=== PATIENT | female | born 1965 | race African-American/Black ===

== ENCOUNTER 2017-08-08 14:53 | Emergency (ER) | payer OTHER ==
[~2017-08-08] VITALS: Ht 170.2 cm; Wt 100.0 kg
[~2017-08-08 14:53] MED LIST: AMLO-511 PO; ASPI-1182 PO; HYDR12.530 PO; METF500T4 PO; POT1TABL2 PO; SIMV-260 PO
[2017-08-08 15:07] LABS: GLUCOSE,POINT OF CARE 104 MG/DL (70-110)
[2017-08-08] MEDS ORDERED: IBUPROFEN 800 MG TABLET PO ONE (15:30)
[2017-08-08] MEDS ORDERED: [UNRECOGNIZED DRUG - CODE] PO (15:46)
[2017-08-08] MEDS ORDERED: GABA-531 PO (15:46)
[2017-08-08] MEDS ORDERED: HYDR-309 PO (15:46)
[2017-08-08] MEDS ORDERED: LISI-618 PO (15:46)
[2017-08-08] MEDS ORDERED: LISINOPRIL 10 MG TABLET PO ONE (16:00)
[2017-08-08 17:24] VITALS: BP 153/85
== END 2017-08-08 17:43 | disposition home or self-care (01) ==
LOC: EMS 14:54
DX: S62.613A Displaced fracture of proximal phalanx of left middle finger, initial encounter for closed fracture (principal); S62.615A Displaced fracture of proximal phalanx of left ring finger, initial encounter for closed fracture; I10 Essential (primary) hypertension; E11.9 Type 2 diabetes mellitus without complications; E78.00 Pure hypercholesterolemia, unspecified; F17.210 Nicotine dependence, cigarettes, uncomplicated; W50.0XXA Accidental hit or strike by another person, initial encounter; Y93.89 Activity, other specified; Y92.89 Other specified places as the place of occurrence of the external cause; Y99.8 Other external cause status
CPT/HCPCS: 82962; 99284

== ENCOUNTER 2019-01-21 12:34 | Inpatient (IN) | payer SELFPAY ==
[~2019-01-21] VITALS: Ht 172.7 cm; Wt 94.8 kg
[~2019-01-21 12:34] MED LIST changes: -AMLO-511 PO; -ASPI-1182 PO; +GABA-531 PO; +HYDR-309 PO; -HYDR12.530 PO; +LISI-618 PO; +METF-960 PO; -METF500T4 PO; -POT1TABL2 PO; -SIMV-260 PO; +[UNRECOGNIZED DRUG - CODE] PO
[2019-01-21] MEDS ORDERED: SIMV-260 PO (12:40)
[2019-01-21] MEDS ORDERED: AMLO-511 PO (12:40)
[2019-01-21] MEDS ORDERED: METF-960 PO (12:40)
[2019-01-21 12:54] LABS: GLUCOSE,POINT OF CARE 142 MG/DL (70-110)
[2019-01-21 14:25] LABS: BASOPHILS % (AUTO) 1.4 % (0.0-2.0); EOSINOPHILS % (AUTO) 3.7 % (1.0-6.0); HEMATOCRIT 38.2 % (36-46); HEMOGLOBIN 12.5 g/dL (12.0-16.0); LYMPHOCYTES % (AUTO) 45.7 % (22.0-44.0); MEAN CORPUSCULAR HEMOGLOBIN 25.7 pg (26.0-34.0); MEAN CORPUSCULAR HGB CONC 32.7 G/dL (31.0-37.0); MEAN CORPUSCULAR VOLUME 79 fL (80-100); MONOCYTES # (AUTO) 0.7 K/uL (0.1-1.0); MONOCYTES % (AUTO) 10.7 % (2.0-9.0); NEUTROPHILS # (AUTO) 2.6 K/uL (1.8-7.7); NEUTROPHILS % (AUTO) 38.5 % (40.0-70.0); PLATELET COUNT (AUTO) 329 K/uL (150-450); RED BLOOD CELL COUNT(AUTO) 4.87 MIL/uL (4.00-5.20); RED CELL DISTRIBUTION WIDTH 14.5 % (11.5-14.5)
[2019-01-21 14:28] LABS: APPEARANCE,URINE CLOUDY (CLEAR); BILIRUBIN,URINE NEGATIVE (NEGATIVE); GLUCOSE, URINE (UA) NEGATIVE (NEGATIVE); KETONES,URINE NEGATIVE (NEGATIVE); LEUKOCYTE ESTERASE ,URINE NEGATIVE (NEGATIVE); NITRATE,URINE NEGATIVE (NEGATIVE); OCCULT BLOOD,URINE NEGATIVE (NEGATIVE); PROTEIN,URINE NEGATIVE (NEGATIVE)
[2019-01-21 14:48] LABS: ANION GAP 8 mmol/L (8-16); CALCIUM, TOTAL 9.2 mg/dL (8.8-10.5); CARBON DIOXIDE 29 mmol/L (22-29); CHLORIDE 103 mmol/L (98-107); CREATININE 0.79 mg/dL (0.60-1.30); GLOMERULAR FILTR. RATE CALC > 60 mL/min (>60); GLUCOSE,RANDOM 94 mg/dL (70-110); POTASSIUM 3.9 mmol/L (3.5-5.1); SODIUM SERUM 140 mmol/L (136-145); UREA NITROGEN, BLOOD 8 mg/dL (7-18)
[2019-01-21 14:52] LABS: BACTERIA,URINE None Seen /HPF (None Seen); RBC,URINE None Seen /HPF (0-2); SQUAMOUS EPITHELIAL CELL,UR None Seen /LPF (None Seen); WBC,URINE None Seen /HPF (0-5)
[2019-01-21 14:52] LABS: ALANINE AMINOTRANSFERASE 24 U/L (12-78); ALBUMIN 3.1 g/dL (3.4-5.0); ALKALINE PHOSPHATASE 91 U/L (46-116); ASPARTATE AMINOTRANSFERASE 18 U/L (15-37); BILIRUBIN,TOTAL 0.3 mg/dL (0.1-1.0); LIPASE 347 U/L (73-393); TOTAL PROTEIN, SERUM 7.7 g/dL (6.4-8.2)
[2019-01-21] MEDS ORDERED: ASPIRIN 81 MG CHEWABLE TABLET PO ONE (16:45)
[2019-01-21] MEDS ORDERED: PYRI50 PO (16:49)
[2019-01-21] MEDS ORDERED: ACETAMINOPHEN 325 MG TABLET PO PRN (19:15)
[2019-01-21] MEDS ORDERED: 0.9% SODIUM CHLORIDE 10 ML SYRINGE IVP PRN (19:15)
[2019-01-21] MEDS ORDERED: ONDANSETRON HCL 4 MG/2 ML VIAL IVP PRN ×2 (19:15→20:00)
[2019-01-21] MEDS ORDERED: MAGNESIUM OXIDE 400 MG TABLET PO PRN (20:00)
[2019-01-21] MEDS ORDERED: POTASSIUM CHL 10 MEQ/WATER 50 ML IV PRN (20:00)
[2019-01-21] MEDS ORDERED: IPRATROPIUM BROMIDE 0.5 MG/2.5 ML NEB SOLUTION NEB PRN (20:00)
[2019-01-21] MEDS ORDERED: BISACODYL 10 MG RECTAL RECTAL SUPPOSITORY PR PRN (20:00)
[2019-01-21] MEDS ORDERED: OxyCODONE HCL/ACETAMINOPHEN 5-325 MG TABLET PO PRN (20:00)
[2019-01-21] MEDS ORDERED: MAGNESIUM HYDROXIDE SUSPENSION 30 ML UDCUP PO PRN (20:00)
[2019-01-21] MEDS ORDERED: POTASSIUM CHLORIDE 20 MEQ ER TABLET PO PRN (20:00)
[2019-01-21] MEDS ORDERED: ZOLPIDEM TARTRATE 5 MG TABLET PO PRN (20:00)
[2019-01-21] MEDS ORDERED: MAGNESIUM SULFATE 2 GM/WATER 50 ML IV PRN (20:00)
[2019-01-21] MEDS ORDERED: MORPHINE SULFATE 2 MG/ML SYRINGE IVP PRN (20:00)
[2019-01-21] MEDS ORDERED: MAGNESIUM SULFATE 4 GM/WATER 100 ML IV PRN (20:00)
[2019-01-21] MEDS ORDERED: ALBUTEROL SULFATE 2.5 MG/0.5 ML NEB SOLUTION NEB PRN (20:00)
[2019-01-21 20:54] LABS: GLUCOSE,POINT OF CARE 250 MG/DL (70-110)
[2019-01-21] MEDS: SIMVASTATIN 20 MG TABLET PO SCH (21:21)
[2019-01-21] MEDS ORDERED: ASPI-1182 PO (21:24)
[2019-01-21 21:25] VITALS: BP 150/80
[2019-01-22] VITALS (7 sets, daily range): BP systolic 130–160; BP diastolic 67–102
[2019-01-22] MEDS ORDERED: DEXTROSE 50%-WATER 25 GM/50 ML SYRINGE IVP PRN (05:30)
[2019-01-22 06:18] LABS: INR 0.9 (0.9-1.1); PROTHROMBIN TIME 9.8 SEC (9.4-11.6)
[2019-01-22 06:20] LABS: EOSINOPHILS % (AUTO) 5.1 % (1.0-6.0); HEMATOCRIT 35.6 % (36-46); HEMOGLOBIN 11.6 g/dL (12.0-16.0); LYMPHOCYTES # (AUTO) 2.2 K/uL (1.0-4.8); LYMPHOCYTES % (AUTO) 45.1 % (22.0-44.0); MEAN CORPUSCULAR HGB CONC 32.5 G/dL (31.0-37.0); MEAN CORPUSCULAR VOLUME 80 fL (80-100); MONOCYTES # (AUTO) 0.7 K/uL (0.1-1.0); MONOCYTES % (AUTO) 13.9 % (2.0-9.0); NEUTROPHILS # (AUTO) 1.7 K/uL (1.8-7.7); NEUTROPHILS % (AUTO) 34.9 % (40.0-70.0); PLATELET COUNT (AUTO) 302 K/uL (150-450); RED BLOOD CELL COUNT(AUTO) 4.46 MIL/uL (4.00-5.20); RED CELL DISTRIBUTION WIDTH 14.4 % (11.5-14.5)
[2019-01-22 06:53] LABS: ALANINE AMINOTRANSFERASE 21 U/L (12-78); ALBUMIN 2.6 g/dL (3.4-5.0); ALKALINE PHOSPHATASE 84 U/L (46-116); ANION GAP 5 mmol/L (8-16); ASPARTATE AMINOTRANSFERASE 15 U/L (15-37); BILIRUBIN,TOTAL 0.2 mg/dL (0.1-1.0); CALCIUM, TOTAL 8.7 mg/dL (8.8-10.5); CARBON DIOXIDE 29 mmol/L (22-29); CHLORIDE 102 mmol/L (98-107); GLOMERULAR FILTR. RATE CALC > 60 mL/min (>60); GLUCOSE,RANDOM 161 mg/dL (70-110); PHOSPHORUS 4.3 mg/dL (2.5-4.9); POTASSIUM 3.6 mmol/L (3.5-5.1); SODIUM SERUM 136 mmol/L (136-145); TOTAL PROTEIN, SERUM 7.1 g/dL (6.4-8.2); UREA NITROGEN, BLOOD 8 mg/dL (7-18)
[2019-01-22] MEDS: LISINOPRIL 20 MG TABLET PO SCH (08:51)
[2019-01-22] MEDS: MetFORMIN HCL 500 MG TABLET PO SCH ×2 (08:51→18:10)
[2019-01-22] MEDS: PYRIDOXINE HCL 50 MG TABLET PO SCH (08:51)
[2019-01-22] MEDS: FAMOTIDINE 20 MG TABLET PO SCH (08:51)
[2019-01-22] MEDS: GABAPENTIN 300 MG CAPSULE PO SCH ×3 (08:51→20:58)
[2019-01-22] MEDS: AmLODIPine BESYLATE 5 MG TABLET PO SCH (08:51)
[2019-01-22] MEDS: ASPIRIN 81 MG EC TABLET PO SCH (08:55)
[2019-01-22] MEDS: NICOTINE 21 MG/24 HOUR PATCH TD SCH (09:50)
[2019-01-22 11:48] LABS: GLUCOMETER DEV NAME(LOC) 5N.2; GLUCOSE,POINT OF CARE 144 MG/DL (70-110)
[2019-01-22 12:14] LABS: GLUCOMETER DEV NAME(LOC) 5S.1; GLUCOSE,POINT OF CARE 130 MG/DL (70-110)
[2019-01-22 12:15] LABS: CHOL/HDL RATIO 4.3 (3.9-5.7); THYROID STIMULATING HORMONE 0.82 uIU/mL (0.36-3.74)
[2019-01-22 12:17] LABS: HEMOGLOBIN A1C 6.5 % (4.5-6.2)
[2019-01-22 18:54] LABS: GLUCOMETER DEV NAME(LOC) 5S.2; GLUCOSE,POINT OF CARE 207 MG/DL (70-110)
[2019-01-22] MEDS: SIMVASTATIN 20 MG TABLET PO SCH (20:58)
[2019-01-22] MEDS: INSULIN LISPRO 100 UNITS/ML SQ PRN (21:08)
[2019-01-22 22:58] LABS: GLUCOMETER DEV NAME(LOC) 5S.2; GLUCOSE,POINT OF CARE 210 MG/DL (70-110)
[2019-01-23] VITALS (7 sets, daily range): BP systolic 137–181; BP diastolic 78–101
[2019-01-23] MEDS: ACETAMINOPHEN 325 MG TABLET PO PRN ×2 (05:51→11:45)
[2019-01-23] MEDS: INSULIN LISPRO 100 UNITS/ML SQ PRN ×3 (05:52→17:29)
[2019-01-23 08:09] LABS: GLUCOMETER DEV NAME(LOC) 5N.2; GLUCOSE,POINT OF CARE 155 MG/DL (70-110)
[2019-01-23] MEDS: MetFORMIN HCL 500 MG TABLET PO SCH ×2 (08:26→18:12)
[2019-01-23] MEDS: LISINOPRIL 20 MG TABLET PO SCH (08:26)
[2019-01-23] MEDS: PYRIDOXINE HCL 50 MG TABLET PO SCH (08:26)
[2019-01-23] MEDS: AmLODIPine BESYLATE 5 MG TABLET PO SCH (08:26)
[2019-01-23] MEDS: ASPIRIN 81 MG EC TABLET PO SCH (08:26)
[2019-01-23] MEDS: FAMOTIDINE 20 MG TABLET PO SCH (08:26)
[2019-01-23] MEDS: NICOTINE 21 MG/24 HOUR PATCH TD SCH (08:31)
[2019-01-23] MEDS ORDERED: AmLODIPine BESYLATE 5 MG TABLET PO ONE (11:30)
[2019-01-23 15:48] LABS: GLUCOMETER DEV NAME(LOC) 5S.2; GLUCOSE,POINT OF CARE 183 MG/DL (70-110)
[2019-01-23] MEDS: GABAPENTIN 300 MG CAPSULE PO SCH (22:06)
[2019-01-23] MEDS: SIMVASTATIN 20 MG TABLET PO SCH (22:06)
[2019-01-24 04:51] VITALS: BP 152/85
[2019-01-24] MEDS: ACETAMINOPHEN 325 MG TABLET PO PRN (05:44)
[2019-01-24 07:57] VITALS: BP 144/86
[2019-01-24] MEDS: ASPIRIN 81 MG EC TABLET PO SCH (08:10)
[2019-01-24] MEDS: PYRIDOXINE HCL 50 MG TABLET PO SCH (08:10)
[2019-01-24] MEDS: MetFORMIN HCL 500 MG TABLET PO SCH (08:10)
[2019-01-24] MEDS: LISINOPRIL 20 MG TABLET PO SCH (08:10)
[2019-01-24] MEDS: FAMOTIDINE 20 MG TABLET PO SCH (08:10)
[2019-01-24] MEDS: NICOTINE 21 MG/24 HOUR PATCH TD SCH (08:11)
[2019-01-24] MEDS ORDERED: AmLODIPine BESYLATE 10 MG TABLET PO SCH (09:00)
[2019-01-24 20:39] LABS: GLUCOMETER DEV NAME(LOC) 5S.2; GLUCOSE,POINT OF CARE 163 MG/DL (70-110)
[2019-01-24 20:39] LABS: GLUCOMETER DEV NAME(LOC) 5S.2; GLUCOSE,POINT OF CARE 131 MG/DL (70-110)
[2019-01-25 04:23] LABS: GLUCOMETER DEV NAME(LOC) 5N.2; GLUCOSE,POINT OF CARE 193 MG/DL (70-110)
== END 2019-01-24 09:40 | disposition home or self-care (01) | DRG 66 ==
LOC: EMS 12:35 → 5N 18:57
PROVIDERS: ADMIT Internal Medicine; ATTEND Internal Medicine
DX: I63.81 Other cerebral infarction due to occlusion or stenosis of small artery (principal); E66.9 Obesity, unspecified; I10 Essential (primary) hypertension; E78.5 Hyperlipidemia, unspecified; E78.00 Pure hypercholesterolemia, unspecified; E11.9 Type 2 diabetes mellitus without complications; F17.210 Nicotine dependence, cigarettes, uncomplicated; Z98.891 History of uterine scar from previous surgery; Z68.31 Body mass index [BMI] 31.0-31.9, adult
CPT/HCPCS: 70450; 70544; 70551; 83036; 83605; 83735; 84100; 84443; 92523; 93005; 93306; 93880; 97112; 97161; 97165; G0378

== ENCOUNTER 2019-03-22 20:28 | Inpatient (IN) | payer SELFPAY ==
[~2019-03-22] VITALS: Ht 172.7 cm; Wt 94.5 kg
[~2019-03-22 20:28] MED LIST changes: +AMLO-511 PO; +ASPI-1182 PO; +PYRI50 PO; +SIMV-260 PO; -[UNRECOGNIZED DRUG - CODE] PO
[2019-03-22 21:09] LABS: GLUCOSE,POINT OF CARE 144 MG/DL (70-110)
[2019-03-22 21:35] LABS: EOSINOPHILS % (AUTO) 3.9 % (1.0-6.0); HEMATOCRIT 37.6 % (36-46); HEMOGLOBIN 12.1 g/dL (12.0-16.0); LYMPHOCYTES # (AUTO) 3.7 K/uL (1.0-4.8); LYMPHOCYTES % (AUTO) 51.7 % (22.0-44.0); MEAN CORPUSCULAR HEMOGLOBIN 25.1 pg (26.0-34.0); MEAN CORPUSCULAR HGB CONC 32.1 G/dL (31.0-37.0); MEAN CORPUSCULAR VOLUME 78 fL (80-100); MONOCYTES # (AUTO) 0.4 K/uL (0.1-1.0); NEUTROPHILS # (AUTO) 2.7 K/uL (1.8-7.7); NEUTROPHILS % (AUTO) 37.4 % (40.0-70.0); PLATELET COUNT (AUTO) 275 K/uL (150-450); RED BLOOD CELL COUNT(AUTO) 4.81 MIL/uL (4.00-5.20); RED CELL DISTRIBUTION WIDTH 15.5 % (11.5-14.5)
[2019-03-22 21:44] LABS: INR 0.9 (0.9-1.1); PROTHROMBIN TIME 9.9 SEC (9.4-11.6)
[2019-03-22 21:50] LABS: ALANINE AMINOTRANSFERASE 31 U/L (12-78); ALBUMIN 3.4 g/dL (3.4-5.0); ALKALINE PHOSPHATASE 82 U/L (46-116); ASPARTATE AMINOTRANSFERASE 22 U/L (15-37); BILIRUBIN,TOTAL 0.3 mg/dL (0.1-1.0); CALCIUM, TOTAL 9.1 mg/dL (8.8-10.5); CARBON DIOXIDE 29 mmol/L (22-29); CREATININE 1.02 mg/dL (0.60-1.30); GLOMERULAR FILTR. RATE CALC > 60 mL/min (>60); GLUCOSE,RANDOM 149 mg/dL (70-110); LIPASE 75 U/L (73-393); TOTAL PROTEIN, SERUM 7.6 g/dL (6.4-8.2)
[2019-03-22 22:01] LABS: ANION GAP 9 mmol/L (8-16); CHLORIDE 104 mmol/L (98-107); POTASSIUM 3.1 mmol/L (3.5-5.1); SODIUM SERUM 142 mmol/L (136-145)
[2019-03-22 22:21] LABS: UREA NITROGEN, BLOOD 13 mg/dL (7-18)
[2019-03-22] MEDS ORDERED: POTASSIUM CHLORIDE 20 MEQ ER TABLET PO ONE (22:30)
[2019-03-22] MEDS ORDERED: ASPIRIN 325 MG EC TABLET PO ONE (23:00)
[2019-03-22] MEDS ORDERED: ACETAMINOPHEN 325 MG TABLET PO PRN (23:15)
[2019-03-22] MEDS ORDERED: 0.9% SODIUM CHLORIDE 10 ML SYRINGE IVP PRN (23:15)
[2019-03-22] MEDS ORDERED: ONDANSETRON HCL 4 MG/2 ML VIAL IVP PRN (23:15)
[2019-03-23] VITALS (7 sets, daily range): BP systolic 132–153; BP diastolic 75–88
[2019-03-23] MEDS ORDERED: ACETAMINOPHEN 325 MG TABLET PO PRN (08:30)
[2019-03-23] MEDS ORDERED: ONDANSETRON HCL 4 MG/2 ML VIAL IVP PRN (08:30)
[2019-03-23] MEDS ORDERED: ZOLPIDEM TARTRATE 5 MG TABLET PO PRN (08:30)
[2019-03-23] MEDS ORDERED: 0.9% SODIUM CHLORIDE 10 ML SYRINGE IVP PRN (08:30)
[2019-03-23] MEDS ORDERED: GLUCAGON,HUMAN RECOMBINANT 1 MG VIAL IM PRN (08:45)
[2019-03-23] MEDS ORDERED: INSULIN LISPRO 100 UNITS/ML SQ PRN ×2 (08:45→21:00)
[2019-03-23] MEDS: PANTOPRAZOLE SODIUM 40 MG/VIAL IVP SCH (09:13)
[2019-03-23] MEDS: GABAPENTIN 300 MG CAPSULE PO SCH (09:13)
[2019-03-23] MEDS: LISINOPRIL 20 MG TABLET PO SCH (09:14)
[2019-03-23] MEDS: ASPIRIN 81 MG EC TABLET PO SCH (09:17)
[2019-03-23] MEDS: PYRIDOXINE HCL 50 MG TABLET PO SCH (09:17)
[2019-03-23] MEDS: AmLODIPine BESYLATE 5 MG TABLET PO SCH (09:17)
[2019-03-23] MEDS: ENOXAPARIN SODIUM 40 MG/0.4 ML PF SYRINGE SQ SCH (09:29)
[2019-03-23] MEDS: MetFORMIN HCL 500 MG TABLET PO SCH (19:04)
[2019-03-23 19:49] LABS: GLUCOMETER DEV NAME(LOC) 5S.2; GLUCOSE,POINT OF CARE 122 MG/DL (70-110)
[2019-03-23 19:49] LABS: GLUCOMETER DEV NAME(LOC) 5S.2; GLUCOSE,POINT OF CARE 120 MG/DL (70-110)
[2019-03-23 19:50] LABS: GLUCOMETER DEV NAME(LOC) 5S.2; GLUCOSE,POINT OF CARE 115 MG/DL (70-110)
[2019-03-23] MEDS ORDERED: SIMVASTATIN 20 MG TABLET PO SCH (21:00)
[2019-03-23] MEDS ORDERED: DEXTROSE 50%-WATER 25 GM/50 ML SYG IVP PRN (21:00)
[2019-03-23 22:20] LABS: GLUCOMETER DEV NAME(LOC) 5S.1; GLUCOSE,POINT OF CARE 133 MG/DL (70-110)
[2019-03-24 04:56] VITALS: BP 143/80
[2019-03-24 05:04] LABS: GLUCOMETER DEV NAME(LOC) 5S.2; GLUCOSE,POINT OF CARE 141 MG/DL (70-110)
[2019-03-24 05:52] LABS: BASOPHILS % (AUTO) 1.1 % (0.0-2.0); EOSINOPHILS % (AUTO) 4.2 % (1.0-6.0); HEMATOCRIT 37.5 % (36-46); LYMPHOCYTES # (AUTO) 2.9 K/uL (1.0-4.8); LYMPHOCYTES % (AUTO) 49.6 % (22.0-44.0); MEAN CORPUSCULAR HEMOGLOBIN 25.5 pg (26.0-34.0); MEAN CORPUSCULAR HGB CONC 32.1 G/dL (31.0-37.0); MEAN CORPUSCULAR VOLUME 80 fL (80-100); MONOCYTES # (AUTO) 0.4 K/uL (0.1-1.0); MONOCYTES % (AUTO) 6.9 % (2.0-9.0); NEUTROPHILS # (AUTO) 2.2 K/uL (1.8-7.7); NEUTROPHILS % (AUTO) 38.2 % (40.0-70.0); PLATELET COUNT (AUTO) 266 K/uL (150-450); RED BLOOD CELL COUNT(AUTO) 4.71 MIL/uL (4.00-5.20); RED CELL DISTRIBUTION WIDTH 15.7 % (11.5-14.5)
[2019-03-24 07:18] LABS: ANION GAP 7 mmol/L (8-16); CALCIUM, TOTAL 8.8 mg/dL (8.8-10.5); CARBON DIOXIDE 28 mmol/L (22-29); CHLORIDE 104 mmol/L (98-107); CHOL/HDL RATIO 4.8 (3.9-5.7); CHOLESTEROL 143 mg/dL (131-200); CREATININE 0.76 mg/dL (0.60-1.30); GLOMERULAR FILTR. RATE CALC > 60 mL/min (>60); GLUCOSE,RANDOM 136 mg/dL (70-110); HDL CHOLESTEROL 30 mg/dL (40-60); LDL CHOL (CALC.) 77 mg/dL (0-130); POTASSIUM 3.6 mmol/L (3.5-5.1); SODIUM SERUM 139 mmol/L (136-145); TRIGLYCERIDES 181 mg/dL (15-150); UREA NITROGEN, BLOOD 12 mg/dL (7-18)
[2019-03-24 07:45] LABS: HEMOGLOBIN A1C 7.8 % (4.5-6.2)
[2019-03-24 08:34] VITALS: BP 162/100
[2019-03-24] MEDS: PANTOPRAZOLE SODIUM 40 MG/VIAL IVP SCH (08:41)
[2019-03-24] MEDS: PYRIDOXINE HCL 50 MG TABLET PO SCH (08:41)
[2019-03-24] MEDS: LISINOPRIL 20 MG TABLET PO SCH (08:42)
[2019-03-24] MEDS: ENOXAPARIN SODIUM 40 MG/0.4 ML PF SYRINGE SQ SCH (08:42)
[2019-03-24] MEDS: AmLODIPine BESYLATE 5 MG TABLET PO SCH (08:43)
[2019-03-24] MEDS: GABAPENTIN 300 MG CAPSULE PO SCH (08:43)
[2019-03-24] MEDS: MetFORMIN HCL 500 MG TABLET PO SCH (08:43)
[2019-03-24] MEDS: ASPIRIN 81 MG EC TABLET PO SCH (08:44)
[2019-03-24 11:35] VITALS: BP 152/103
[2019-03-24 23:00] LABS: GLUCOMETER DEV NAME(LOC) 5S.2; GLUCOSE,POINT OF CARE 107 MG/DL (70-110)
== END 2019-03-24 13:05 | disposition home or self-care (01) | DRG 93 ==
LOC: EMS 20:29 → 5S 23:05
PROVIDERS: ADMIT Internal Medicine; ATTEND Internal Medicine
DX: R20.0 Anesthesia of skin (principal); D64.9 Anemia, unspecified; E11.9 Type 2 diabetes mellitus without complications; E78.00 Pure hypercholesterolemia, unspecified; I10 Essential (primary) hypertension; F17.210 Nicotine dependence, cigarettes, uncomplicated; E78.5 Hyperlipidemia, unspecified; E66.9 Obesity, unspecified; Z86.73 Personal history of transient ischemic attack (TIA), and cerebral infarction without residual deficits; Z82.49 Family history of ischemic heart disease and other diseases of the circulatory system; Z68.31 Body mass index [BMI] 31.0-31.9, adult
CPT/HCPCS: 70450; 70551; 83036; 83735; 84132; 93005; C9113; G0378; J1650

== ENCOUNTER 2019-11-14 17:19 | Emergency (ER) | payer OTHER ==
[~2019-11-14] VITALS: Ht 170.2 cm; Wt 105.0 kg
[~2019-11-14 17:19] MED LIST changes: -AMLO-511 PO; +AMLO5TAB9 PO; -HYDR-309 PO
[2019-11-14] MEDS ORDERED: AMLO10TA7 PO (18:07)
[2019-11-14 18:15] LABS: GLUCOSE,POINT OF CARE 183 MG/DL (70-110)
[2019-11-14] MEDS ORDERED: ASPI81 PO (20:00)
[2019-11-14] MEDS: KETOROLAC TROMETHAMINE 10 MG TABLET PO ONE (20:02)
[2019-11-14 20:22] VITALS: BP 141/72
== END 2019-11-14 20:25 | disposition home or self-care (01) ==
LOC: EMS 17:20
DX: K02.9 Dental caries, unspecified (principal); K04.7 Periapical abscess without sinus; R68.84 Jaw pain; M25.512 Pain in left shoulder; E11.9 Type 2 diabetes mellitus without complications; E78.00 Pure hypercholesterolemia, unspecified; I10 Essential (primary) hypertension; Z86.73 Personal history of transient ischemic attack (TIA), and cerebral infarction without residual deficits; Z79.899 Other long term (current) drug therapy; Z79.82 Long term (current) use of aspirin; Z79.4 Long term (current) use of insulin; Z98.890 Other specified postprocedural states